=== PATIENT | female | born 1975 | race Caucasian/White ===

== ENCOUNTER 2017-08-04 17:58 | Emergency (ER) | payer MEDICAID ==
[~2017-08-04] VITALS: Ht 160 cm; Wt 75.0 kg
[2017-08-04 18:02] VITALS: TEMP 99.3
[2017-08-04] MEDS ORDERED: SINGULAIR 110 MG/TAB PO (18:18)
[2017-08-04] MEDS ORDERED: VENTOLIN0.09 MG IH ×2 (18:18→19:56)
[2017-08-04 18:37] LABS: BASO # 0.1 (0.0-0.2); EOS # 0.2 (0.0-0.7); EOS % 1.9 % (0-4.0); GRAN # 5.9 (1.4-6.5); GRAN % 69.8 % (42.2-75.2); LYMPH # 1.4 (1.2-3.4); LYMPH % 17.2 % (20.0-51.0); MEAN CELL VOLUME 91 fl (80.0-100.0); MEAN CORPUSCULAR HGB CONC 32 g/dl (33.0-37.0); MEAN PLATELET VOLUME 9.8 fl (7.4-10.4); MONO # 0.8 (0.1-0.6); MONO % 9.7 % (1.7-9.3); PLATELET COUNT 335 K/mm3 (130-400); RED BLOOD COUNT 3.94 M/mm3 (4.10-5.30); REDCELL DISTRIBUTION WIDTH-CV 13.5 % (11.5-14.5)
[2017-08-04 18:40] LABS: HEMATOCRIT 35.8 % (37.0-47.0); HEMOGLOBIN 11.5 g/dl (12.5-16.0); MEAN CORPUSCULAR HEMOGLOBIN 29 pg (27.0-31.0)
[2017-08-04 18:48] LABS: ALANINE AMINOTRANSFERASE 32 U/L (9-52); ALBUMIN 4.2 gm/dL (3.5-5.0); ALKALINE PHOSPHATASE 89 U/L (50-136); ANION GAP 9 mmol/L (7-16); AST,SGOT 20 U/L (15-37); BILIRUBIN,TOTAL 0.2 mg/dL (0.0-1.0); BLOOD UREA NITROGEN 9 mg/dL (7-17); CALCIUM 9.3 mg/dL (8.4-10.2); CARBON DIOXIDE 26 mmol/L (22-30); CHLORIDE 104 mmol/L (98-107); CREATININE, serum 0.87 mg/dL (0.52-1.25); GLUCOSE 89 mg/dL (74-106); POTASSIUM 4.3 mmol/L (3.4-5.0); SODIUM 139 mmol/L (137-145); TOTAL PROTEIN 7.5 gm/dL (6.4-8.2)
[2017-08-04 18:59] LABS: TROPONIN-I < 0.012 ng/mL (0.000-0.034)
[2017-08-04] MEDS ORDERED: PREDNISONE20 MG PO (19:56)
[2017-08-04 20:52] VITALS: BP 120/70; PULSE 118
[2017-08-04] MEDS ORDERED: FLOVENT 110MCG7.9 GM IH (21:02)
[2017-08-04] MEDS ORDERED: FLONASE NASAL S16 GM NS (21:03)
== END 2017-08-04 21:07 | disposition home or self-care (01) ==
LOC: COL.ER 17:58
PROVIDERS: Emergency Medicine
DX: J45.901 Unspecified asthma with (acute) exacerbation (principal)
CPT/HCPCS: J7030; J7512; Q9967

== ENCOUNTER → 2017-12-21 | Outpatient (CLI) | payer MEDICAID ==
[~2017-12-21] MED LIST: FLONASE NASAL S16 GM NS; FLOVENT 110MCG7.9 GM IH; PREDNISONE20 MG PO; SINGULAIR 110 MG/TAB PO; VENTOLIN0.09 MG IH
== END ==
LOC: MC.RAD 08:00
DX: N63.22 Unspecified lump in the left breast, upper inner quadrant (principal); N63.10 Unspecified lump in the right breast, unspecified quadrant; N64.4 Mastodynia; Z80.3 Family history of malignant neoplasm of breast

== ENCOUNTER → 2019-08-31 | Outpatient (CLI) | payer BC | LOC: MC.RAD 13:31 | DX: R92.8 Other abnormal and inconclusive findings on diagnostic imaging of breast (principal) | CPT/HCPCS: G0279 ==

== ENCOUNTER 2020-01-24 09:38 | Day surgery (SDC) | payer BC ==
[~2020-01-24] VITALS: Ht 160 cm; Wt 82.0 kg
[2020-01-24 10:47] VITALS: BP 128/67; PULSE 72; TEMP 97.8
--- NOTE | 2020-01-24 11:17 | NUR ---
Patient taken to radiology per wheelchair. IV was converted to INT.
[2020-01-24] MEDS ORDERED: RT ADVAIR 228 DISKUS IH (11:28)
[2020-01-24] MEDS ORDERED: PROVENTIL0.09 MG/A1 IH (11:29)
--- NOTE | 2020-01-24 11:57 | NUR ---
Returns to room 2 from radiology and assisted into bathroom. IV fluids infusing.
[2020-01-24] MEDS ORDERED: NORCO 325 MG-51 TAB PO (13:09)
[2020-01-24 13:13] VITALS: BP 97/52; PULSE 79
--- NOTE | 2020-01-24 13:13 | NUR ---
Patient returns to room 2 per cart from surgery accompained by Betty [facility] and Lamar RN. Arouses to verbal stimuli. Dressing on the left breast dry. Temp 97.9. IV fluids infusing and siderails up x2. Call light in reach. Allowed to rest.
[2020-01-24 13:28] VITALS: BP 100/58; PULSE 61
--- NOTE | 2020-01-24 13:28 | NUR ---
Drowsy and continues to rest.
[2020-01-24 13:43] VITALS: BP 102/63; PULSE 64
--- NOTE | 2020-01-24 13:43 | NUR ---
Continues to rest. Room air sats 100%. Offers no complaints of pain or nausea.
[2020-01-24 13:58] VITALS: BP 100/60; PULSE 62
--- NOTE | 2020-01-24 13:58 | NUR ---
More awake and taking sips of water.
[2020-01-24 14:13] VITALS: BP 97/63; PULSE 61
--- NOTE | 2020-01-24 14:13 | NUR ---
Sipping on juice. Denies pain or nausea. Eating toast and drinking juice.
--- NOTE | 2020-01-24 14:43 | NUR ---
Assisted up to the bathroom. Voids and returns to room.
--- NOTE | 2020-01-24 15:00 | NUR ---
Medicated with [facility] for complaints of burning sensation from the incisional area.
--- NOTE | 2020-01-24 15:15 | NUR ---
Given dismissal instructions and voices understanding of home cares. Provided script for [place].
--- NOTE | 2020-01-24 15:23 | NUR ---
Patient dismissed to home per private vehicle driven by spouse and taken to the front door per wheelchair and assisted into car by this RN with instructions in hand.
== END 2020-01-24 15:23 | disposition home or self-care (01) ==
LOC: SDCO 09:38 → MC.RAD 11:30 → SDCO 11:30
DX: D24.2 Benign neoplasm of left breast (principal); E06.3 Autoimmune thyroiditis; J45.909 Unspecified asthma, uncomplicated; Z80.0 Family history of malignant neoplasm of digestive organs; G43.909 Migraine, unspecified, not intractable, without status migrainosus; Z20.828 Contact with and (suspected) exposure to other viral communicable diseases
CPT/HCPCS: J0690; J2250; J2704; J7120

== ENCOUNTER 2021-04-18 16:53 | Emergency (ER) | payer OTHER ==
[~2021-04-18] VITALS: Ht 160 cm; Wt 80.5 kg
[~2021-04-18 16:53] MED LIST changes: +NORCO 325 MG-51 TAB PO; +PROVENTIL0.09 MG/A1 IH; +RT ADVAIR 228 DISKUS IH
[2021-04-18] MEDS ORDERED: ZOFRAN ODT8 MG PO (19:31)
[2021-04-18 20:15] VITALS: BP 113/86; PULSE 87; TEMP 97.9
== END 2021-04-18 20:15 | disposition home or self-care (01) ==
LOC: COL.ER 16:53
DX: S09.90XA Unspecified injury of head, initial encounter (principal); F07.81 Postconcussional syndrome; E11.9 Type 2 diabetes mellitus without complications; J45.909 Unspecified asthma, uncomplicated; Z79.899 Other long term (current) drug therapy; W20.8XXA Other cause of strike by thrown, projected or falling object, initial encounter; Y92.59 Other trade areas as the place of occurrence of the external cause; Y99.0 Civilian activity done for income or pay